=== PATIENT | female | born 1965 | race Two or more races ===

== ENCOUNTER 2021-11-11 06:18 | Day surgery (SDC) | payer OTHER | END 2021-11-11 10:25 | disposition home or self-care (01) | LOC: AMB-ENDOS 06:18 | PROVIDERS: ATTEND Colon & Rectal Surgery | DX: K63.5 Polyp of colon (principal); Z20.822 Contact with and (suspected) exposure to COVID-19; K57.30 Diverticulosis of large intestine without perforation or abscess without bleeding; I10 Essential (primary) hypertension ==

== ENCOUNTER 2022-01-05 12:15 | Inpatient (IN) | payer OTHER ==
[~2022-01-05] VITALS: Ht 162.6 cm; Wt 71.7 kg
[2022-01-05] MEDS ORDERED: ATORVASTATIN CA20 MG PO (14:04)
[2022-01-05] MEDS ORDERED: RELPAX40 MG PO (14:04)
[2022-01-05] MEDS ORDERED: CLONAZEPAM0.5 MG PO (14:05)
[2022-01-05] MEDS ORDERED: PROPR PO (14:05)
[2022-01-05] MEDS ORDERED: RESTORIL PO (14:06)
[2022-01-05] MEDS ORDERED: [UNRECOGNIZED DRUG - OTHER] PO (14:07)
[2022-01-05] MEDS ORDERED: HORIZANT300 MG PO (14:07)
[2022-01-05] MEDS ORDERED: [UNRECOGNIZED DRUG - OTHER] PO (14:07)
[2022-01-08] MEDS ORDERED: GABAPENTIN300 M2 (07:51)
[2022-01-08] MEDS ORDERED: PROPRANOLOL HCL10 MG (07:53)
[2022-01-08] MEDS ORDERED: ONDANSETRON HCL4 MG (07:53)
[2022-01-08] MEDS ORDERED: SERTRALINE HCL50 MG (07:54)
[2022-01-08] MEDS ORDERED: NORTRIPTYLINE H50 MG (07:54)
[2022-01-08] MEDS ORDERED: QUETIAPINE FUMA50 MG (07:54)
[2022-01-08] MEDS ORDERED: DOXEPIN HCL25 MG (07:54)
[2022-01-08] MEDS ORDERED: RESTORIL30 MG PO (07:55)
[2022-01-08] MEDS ORDERED: EFFEXOR XR37.5 MG (08:01)
== END 2022-01-11 14:18 | disposition home or self-care (01) | DRG 331 ==
LOC: SURG 12:15 → SURH 01-08 05:38 → O/R 01-08 05:38 → SURG 01-08 12:15 → SURH 01-08 13:21 → SURG 01-08 14:30 → SURH 01-11 01:14
PROVIDERS: ADMIT Colon & Rectal Surgery; ATTEND Colon & Rectal Surgery
PROC: 07BB4ZZ Excision of Mesenteric Lymphatic, Percutaneous Endoscopic Approach (ICD-10-PCS; 2022-01-08)
PROC: 4A1BXSH Monitoring of Gastrointestinal Vascular Perfusion using Indocyanine Green Dye, External Approach (ICD-10-PCS; 2022-01-08)
PROC: 0DTG4ZZ Resection of Left Large Intestine, Percutaneous Endoscopic Approach (ICD-10-PCS; principal; 2022-01-08 14:30)
DX: D12.4 Benign neoplasm of descending colon (principal); Z20.822 Contact with and (suspected) exposure to COVID-19

== ENCOUNTER 2022-10-01 06:35 | Day surgery (SDC) | payer OTHER ==
[~2022-10-01] VITALS: Ht 162.6 cm; Wt 73.5 kg
[~2022-10-01 06:35] MED LIST: ATORVASTATIN CA20 MG PO; CLONAZEPAM0.5 MG PO; DOXEPIN HCL25 MG; EFFEXOR XR37.5 MG; GABAPENTIN300 M2; HORIZANT300 MG PO; MAGNESIUM500 MG PO; NORTRIPTYLINE H50 MG; ONDANSETRON HCL4 MG; PROBIOTIC PO; PROPR PO; PROPRANOLOL HCL10 MG; QUETIAPINE FUMA50 MG; RELPAX40 MG PO; RESTORIL PO; RESTORIL30 MG PO; SERTRALINE HCL50 MG; [UNRECOGNIZED DRUG - OTHER] PO; [UNRECOGNIZED DRUG - OTHER] PO
== END 2022-10-01 16:55 | disposition home or self-care (01) ==
LOC: CIR.AMB 06:35 → ADM 08:45 → CIR.AMB 09:15
PROVIDERS: ATTEND Colon & Rectal Surgery
DX: K64.4 Residual hemorrhoidal skin tags (principal); K64.8 Other hemorrhoids; Z20.822 Contact with and (suspected) exposure to COVID-19

== ENCOUNTER 2023-01-12 07:59 | Day surgery (SDC) | payer OTHER | END 2023-01-12 15:20 | disposition home or self-care (01) | LOC: AMB-ENDOS 07:59 | PROVIDERS: ATTEND Colon & Rectal Surgery | DX: K62.0 Anal polyp (principal); K57.30 Diverticulosis of large intestine without perforation or abscess without bleeding; R19.4 Change in bowel habit; Z20.822 Contact with and (suspected) exposure to COVID-19; Z86.010 Personal history of colon polyps ==

== ENCOUNTER 2024-12-12 06:00 | Day surgery (SDC) | payer OTHER | END 2024-12-12 19:10 | disposition home or self-care (01) | LOC: AMB-ENDOS 06:00 | PROVIDERS: ATTEND Colon & Rectal Surgery | DX: K63.89 Other specified diseases of intestine (principal); K63.5 Polyp of colon; R19.4 Change in bowel habit; Z86.0100 Personal history of colon polyps, unspecified ==